=== PATIENT | male | born 1990 | race Caucasian/White ===

== ENCOUNTER 2020-12-04 18:38 | Inpatient (IN) | payer SELFPAY ==
[~2020-12-04] VITALS: Ht 167.6 cm; Wt 66.9 kg
[2020-12-04 18:42] VITALS: BP_SYST 132
--- NOTE | 2020-12-04 18:50 | NUR ---
Patient to ER bed 6 to gown for evaluation. Side rails up.
--- NOTE | 2020-12-04 18:54 | NUR ---
URINE COLLECTED AND SENT OVER TO LAB
--- NOTE | 2020-12-04 18:55 | NUR ---
pt arrives from home w/ a 2 week hx of mid abd pain, 9/10, constant. Pain became worse today. Pt also reports n/v and dark stools.
--- NOTE | 2020-12-04 18:56 | NUR ---
ER at bedside examining patient.
[2020-12-04] MEDS ORDERED: NACL 0.9% 1,000 ML IV ONE (19:00)
--- NOTE | 2020-12-04 19:10 | NUR ---
# 20 gauge angiocath placed to rac. Use of asceptic technique. Opsite placed over site. Blood return noted. Blood for lab drawn from site. Flushed with 10 cc of normal saline. No evidence of infiltration noted. Patient tolerated well.
--- NOTE | 2020-12-04 19:14 | NUR ---
UA COLLECTED AND SENT TO THE LAB
--- NOTE | 2020-12-04 19:14 | NUR ---
CARE ENDORSED TO AIMEE DEMPSEY.
--- NOTE | 2020-12-04 19:30 | NUR ---
aSSUMED CARE OF PATIENT AND RECEIVED REPORT FROM DAY SHIFT RN. 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 PT NPO EXCEPT ICE CHIPS.
[2020-12-04 19:33] LABS: BILIRUBIN,URINE NEGATIVE (NEGATIVE); BLOOD, URINE NEGATIVE (NEGATIVE); CLARITY/URINE CLEAR (CLEAR); COLOR,URINE YELLOW (YELLOW); GLUCOSE,URINE NEGATIVE (NEGATIVE); KETONES,URINE 1+ (NEGATIVE); LEUKOCYTE ESTERASE ,URINE NEGATIVE (NEGATIVE); NITRITE, URINE NEGATIVE (NEGATIVE); PROTEIN URINE NEGATIVE (NEGATIVE); UROBILINOGEN,URINE 0.2 (0.2-1.0)
[2020-12-04 19:41] LABS: WHITE BLOOD COUNT (AUTO) 11.6 K/uL (4.8-10.8)
[2020-12-04 19:45] LABS: BASOPHILS # (AUTO) 0.1 K/uL (0.0-0.2); BASOPHILS % (AUTO) 0.8 % (0.0-2.0); EOSINOPHILS % (AUTO) 0.3 % (0.0-4.0); HEMATOCRIT 23.5 % (36-54); HEMOGLOBIN 8.2 g/dL (14.0-18.0); LYMPHOCYTES # (AUTO) 2.8 K/uL (1.0-5.5); LYMPHOCYTES % (AUTO) 24.2 % (20.5-51.5); MEAN CORPUSCULAR HEMOGLOBIN 33 pg (27-31); MEAN CORPUSCULAR HGB CONC 35 % (32-36); MEAN CORPUSCULAR VOLUME 93 fL (79.0-98.0); MONOCYTES # (AUTO) 0.8 K/uL (0.0-1.0); MONOCYTES % (AUTO) 7.1 % (1.7-9.3); NEUTROPHILS # (AUTO) 7.9 K/uL (1.8-7.7); NEUTROPHILS % (AUTO) 67.6 % (40.0-70.0); PLATELET COUNT (AUTO) 266 K/uL (130-430); RED BLOOD CELL COUNT(AUTO) 2.53 MIL/uL (4.2-6.2); RED CELL DISTRIBUTION WIDTH 13.4 % (9.0-15.0)
[2020-12-04 19:46] LABS: CALCIUM 8.1 mg/dL (8.4-11.0); CREATININE 1.27 mg/dL (0.55-1.30); POTASSIUM 3.5 mmol/L (3.5-5.1)
[2020-12-04 19:52] LABS: ALBUMIN 3.5 g/dL (3.4-4.8); TOTAL BILIRUBIN 0.3 mg/dL (0.0-1.0)
[2020-12-04 19:57] LABS: BARBITURATE, URINE NEGATIVE (NEG <=200); BENZODIAZEPINE, URINE NEGATIVE (NEG <=150); COCAINE, URINE NEGATIVE (NEG <=150); METHAMPHETAMINES SCREEN,URINE NEGATIVE (NEG <=500); URINE AMPHETAMINE NEGATIVE (NEG <=500); URINE METHADONE NEGATIVE (NEG <=200)
[2020-12-04 19:58] LABS: CANNABINOID, URINE POSITIVE (NEG <=50); OPIATE, URINE NEGATIVE (NEG <=100); PHENCYCLIDINE SCREEN,URINE NEGATIVE (NEG <=25); UR TRICYCLIC ANTIDEPRESSANTS NEGATIVE (NEG <=300); URINE OXYCODONE SCREEN NEGATIVE (NEG <=100); URINE PROPOXYPHENE SCREEN NEGATIVE (NEG <=300)
[2020-12-04] MEDS ORDERED: MORPHINE 4 MG INJ. 4 MG/ML VIAL IVP ONE (20:45)
[2020-12-04] MEDS ORDERED: PANTOPRAZOLE SODIUM 80 MG in NS 100 ML IVP ONE (21:45)
[2020-12-04] MEDS ORDERED: PANTOPRAZOLE SODIUM 40 MG/VIAL (PROTONIX) ONE (21:58)
[2020-12-04] MEDS: PANTOPRAZOLE SODIUM 40 MG in NS 50 ML IV SCH (21:59)
--- NOTE | 2020-12-04 22:00 | NUR ---
PT C/O PAIN 11/09. MORPHINE GIVEN WITH GOOD RESULT. VITAL SIGNS REMAIN STABLE. LABS DRAWN. WILL CONTINUE TO MONITOR
[2020-12-04 22:25] LABS: EOSINOPHILS % (AUTO) 0.2 % (0.0-4.0); HEMOGLOBIN 7.1 g/dL (14.0-18.0); MONOCYTES # (AUTO) 0.8 K/uL (0.0-1.0)
[2020-12-04 22:31] LABS: BASOPHILS % (AUTO) 0.5 % (0.0-2.0); LYMPHOCYTES # (AUTO) 2.3 K/uL (1.0-5.5); MEAN CORPUSCULAR HEMOGLOBIN 33 pg (27-31); MEAN CORPUSCULAR HGB CONC 36 % (32-36); MEAN CORPUSCULAR VOLUME 93 fL (79.0-98.0); MONOCYTES % (AUTO) 7.9 % (1.7-9.3); NEUTROPHILS # (AUTO) 6.8 K/uL (1.8-7.7); NEUTROPHILS % (AUTO) 68.4 % (40.0-70.0); PLATELET COUNT (AUTO) 220 K/uL (130-430); RED BLOOD CELL COUNT(AUTO) 2.17 MIL/uL (4.2-6.2); RED CELL DISTRIBUTION WIDTH 13.2 % (9.0-15.0); WHITE BLOOD COUNT (AUTO) 9.9 K/uL (4.8-10.8)
[2020-12-04 22:32] LABS: HEMATOCRIT 20.1 % (36-54)
[2020-12-04] MEDS: NACL 0.9% 1,000 ML IV SCH (23:13)
--- NOTE | 2020-12-04 23:25 | NUR ---
PT HB 7.1 AND ONE UNIT PRBCS ORDERED PER ADITTING MD. CONSENT SIGNED. VITAL SIGNS REMAIN STABLE. PT CONTINUES TO BE ON THE PHARMACY COORDINATOR
[2020-12-04] MEDS ORDERED: ACETAMINOPHEN 325 MG TABLET PO PRN (23:45)
[2020-12-04] MEDS ORDERED: ONDANSETRON HCL 4 MG/2 ML VIAL IVP PRN (23:45)
[2020-12-04] MEDS ORDERED: TEMAZEPAM 15 MG CAPSULE PO PRN (23:45)
[2020-12-05] VITALS (7 sets, daily range): BP systolic 90–115
--- NOTE | 2020-12-05 00:54 | NUR ---
Patient will be admitted to care of [facility]. Admitted to TELE unit. Will go to room 130B. Belongings list completed. Complete and up to date summary report printed. SBAR report to be given at bedside with opportunity for questions.
--- NOTE | 2020-12-05 00:55 | NUR ---
Transfer to TELE via ACLS protocol. Licensed nurse present. IV present no signs or symptoms of infiltration.
--- NOTE | 2020-12-05 01:15 | NUR ---
ADMISSION NOTE Received patient from ER via gurney. Patient admitted with diagnosis of GI bleed. Patient is awake, alert, oriented X 4. Patient oriented to hospital room, call light, toileting, pain management and safety-teach back done. Patient informed that ROSELYN Khan will be primary nurse and that their room number is 130B. Personal belongings checked and Belongings List documented. Call light within reach.
--- NOTE | 2020-12-05 02:20 | NUR ---
NOTES: took over from charge nurse Reinaldo. pt. awake, alert . oriented to room , use of call light and bed control. placed on financial services internship. VS checked. denies any pain or discomfort at this time. IV NS infusing. call light within reach. will be transfuse ! unit PRBC.
--- NOTE | 2020-12-05 02:45 | NUR ---
NOTES: 1st unit PRBC started and regulated , checked Blood with nurse Tarsha. IV site on left forearm. VS checked.
[2020-12-05] MEDS ORDERED: PANTOPRAZOLE SODIUM 40 MG/VIAL (PROTONIX) ONE (04:30)
--- NOTE | 2020-12-05 05:10 | NUR ---
NOTES; blood transfusion completed withou any reactions. VS checked. follow up with Protonix drip @ 10 cc/hr and NS @ 80 cc/hr. complete linenchanged since it got wet. needs attended. no pain.
[2020-12-05] MEDS: PANTOPRAZOLE SODIUM 40 MG in NS 50 ML IV SCH ×4 (05:22→19:35)
--- NOTE | 2020-12-05 05:31 | NUR ---
CONSULT REASON FOR CONSULT: GI BLEED PERSON I SPOKE WITH: VALDO CONSULTING PHYSICIAN: DR. PENALOZA (DR. AUGUSTIN DRY BOX TENDER) DISC RECORDIST PHONE NUMBER: [phone] ORDERING PHYSICIAN: DR. MORRIS
--- NOTE | 2020-12-05 06:24 | NUR ---
CLOSING NOTES; pt. went back to sleep. IVF infusing with protonix drip. for further care and assistance. call light within reach.
--- NOTE | 2020-12-05 08:00 | NUR ---
Opening note patient is resting in bed, a/ox4, denies pain, IV line is patent and infusing well, educated on plan of care and call light system, he verbalized understanding, bed in lowest position, two side rails up, call light within reach, fall and aspiration precautions in place.
[2020-12-05 08:24] LABS: BASOPHILS % (AUTO) 0.4 % (0.0-2.0); EOSINOPHILS # (AUTO) 0.1 K/uL (0.0-0.4); EOSINOPHILS % (AUTO) 1.2 % (0.0-4.0); HEMATOCRIT 22.8 % (36-54); LYMPHOCYTES # (AUTO) 2.6 K/uL (1.0-5.5); LYMPHOCYTES % (AUTO) 33.3 % (20.5-51.5); MEAN CORPUSCULAR HEMOGLOBIN 32 pg (27-31); MEAN CORPUSCULAR HGB CONC 35 % (32-36); MEAN CORPUSCULAR VOLUME 93 fL (79.0-98.0); MONOCYTES # (AUTO) 0.7 K/uL (0.0-1.0); MONOCYTES % (AUTO) 8.4 % (1.7-9.3); NEUTROPHILS # (AUTO) 4.5 K/uL (1.8-7.7); NEUTROPHILS % (AUTO) 56.7 % (40.0-70.0); PLATELET COUNT (AUTO) 205 K/uL (130-430); RED BLOOD CELL COUNT(AUTO) 2.46 MIL/uL (4.2-6.2); RED CELL DISTRIBUTION WIDTH 14.3 % (9.0-15.0); WHITE BLOOD COUNT (AUTO) 7.9 K/uL (4.8-10.8)
[2020-12-05 09:07] LABS: ALBUMIN 2.9 g/dL (3.4-4.8); CALCIUM 7.5 mg/dL (8.4-11.0); CREATININE 1.05 mg/dL (0.55-1.30); TOTAL BILIRUBIN 0.4 mg/dL (0.0-1.0)
[2020-12-05 09:12] LABS: PROTHROMBIN TIME 10.9 SECS (9.5-12.5)
[2020-12-05] MEDS: NACL 0.9% 1,000 ML IV SCH ×2 (11:30→19:31)
[2020-12-05] MEDS ORDERED: MULTIVITAMINS TAB 1 TABLET PO ONE (12:00)
[2020-12-05] MEDS: SOD FERRIC GLUC COMPLEX/SUC 125 MG in NS 100 ML IV SCH (12:02)
[2020-12-05 17:18] LABS: BASOPHILS # (AUTO) 0.1 K/uL (0.0-0.2); BASOPHILS % (AUTO) 0.8 % (0.0-2.0); EOSINOPHILS # (AUTO) 0.1 K/uL (0.0-0.4); HEMATOCRIT 22.5 % (36-54); HEMOGLOBIN 7.7 g/dL (14.0-18.0); LYMPHOCYTES # (AUTO) 2.7 K/uL (1.0-5.5); LYMPHOCYTES % (AUTO) 32.6 % (20.5-51.5); MEAN CORPUSCULAR HEMOGLOBIN 32 pg (27-31); MEAN CORPUSCULAR HGB CONC 34 % (32-36); MEAN CORPUSCULAR VOLUME 94 fL (79.0-98.0); MONOCYTES # (AUTO) 0.6 K/uL (0.0-1.0); MONOCYTES % (AUTO) 7.7 % (1.7-9.3); NEUTROPHILS # (AUTO) 4.7 K/uL (1.8-7.7); NEUTROPHILS % (AUTO) 57.9 % (40.0-70.0); PLATELET COUNT (AUTO) 203 K/uL (130-430); RED CELL DISTRIBUTION WIDTH 14.7 % (9.0-15.0); WHITE BLOOD COUNT (AUTO) 8.1 K/uL (4.8-10.8)
--- NOTE | 2020-12-05 18:47 | NUR ---
Closing note patient is resting in bed, a/ox4, denies pain, IV line is patent and infusing well, all needs met, will endorse report to NOC shift nurse, patient is aware that he will be getting a blood transfusion tonight, bed in lowest position, two side rails up, call light within reach, fall and aspiration precautions in place.
--- NOTE | 2020-12-05 19:25 | NUR ---
CHANGE OF SHIFT; endorsed by day shift, will transfuse 1 unit PRBC as ordered. no distress. call light within reach.
--- NOTE | 2020-12-05 20:30 | NUR ---
NOTES" another unit of PRBC started as ordered nd regulated, another IV site started by nurse Alberto via left antecubital. pt. on Protonix drip @ 10 cc/hr and NS @ 80cc /hr. pt. denies any pain. will be NPO after midnite for EGD in am.
[2020-12-05] MEDS: MULTIVITAMINS TAB 1 TABLET PO SCH (20:44)
--- NOTE | 2020-12-05 22:23 | NUR ---
NOTES: pt. still awake, BT in progress no reaction noted. pt. ambulated to the restroom.
--- NOTE | 2020-12-05 23:00 | NUR ---
NOTES: Blood transfusion completed, no reaction. VS checked.
[2020-12-06 00:27] VITALS: BP_SYST 120
[2020-12-06] MEDS: PANTOPRAZOLE SODIUM 40 MG in NS 50 ML IV SCH ×2 (02:11→07:00)
--- NOTE | 2020-12-06 02:23 | NUR ---
NOTES; IV Protonix bag changed. pt. been sleeping.
--- NOTE | 2020-12-06 05:11 | NUR ---
NOTES: no complaint, no signs of blleding. IV site patent IVF continuous.
--- NOTE | 2020-12-06 06:45 | NUR ---
Nutrition Update Larry Scale 17 noted. Pt admitted for GI Bleed Diet: NPO BMI: 23.8 kg/m2 RD to follow per nutrition care standards.
--- NOTE | 2020-12-06 06:49 | NUR ---
CLOSING NOTES; IV Protonix continuous. no distress. kept NPO for EGD, consent signed already. will endorse to incoming shift. call light within reach.
[2020-12-06 06:59] LABS: BASOPHILS % (AUTO) 0.6 % (0.0-2.0); EOSINOPHILS # (AUTO) 0.1 K/uL (0.0-0.4); EOSINOPHILS % (AUTO) 1.3 % (0.0-4.0); HEMOGLOBIN 8.7 g/dL (14.0-18.0); LYMPHOCYTES # (AUTO) 2.9 K/uL (1.0-5.5); LYMPHOCYTES % (AUTO) 35.1 % (20.5-51.5); MEAN CORPUSCULAR HEMOGLOBIN 33 pg (27-31); MEAN CORPUSCULAR HGB CONC 35 % (32-36); MEAN CORPUSCULAR VOLUME 95 fL (79.0-98.0); MONOCYTES # (AUTO) 0.7 K/uL (0.0-1.0); MONOCYTES % (AUTO) 8.1 % (1.7-9.3); NEUTROPHILS # (AUTO) 4.5 K/uL (1.8-7.7); NEUTROPHILS % (AUTO) 54.9 % (40.0-70.0); PLATELET COUNT (AUTO) 205 K/uL (130-430); RED BLOOD CELL COUNT(AUTO) 2.64 MIL/uL (4.2-6.2); RED CELL DISTRIBUTION WIDTH 14.3 % (9.0-15.0); RETICULOCYTE COUNT 2.9 % (0.5-1.5); WHITE BLOOD COUNT (AUTO) 8.2 K/uL (4.8-10.8)
[2020-12-06] MEDS: NACL 0.9% 1,000 ML IV SCH (07:03)
[2020-12-06 08:00] VITALS: BP_SYST 116
[2020-12-06 08:31] LABS: PROTHROMBIN TIME 10.2 SECS (9.5-12.5)
[2020-12-06] MEDS ORDERED: MEPERIDINE 100 MG INJ. 100 MG/ML VIAL ONE (08:44)
[2020-12-06] MEDS ORDERED: DIPHENHYDRAMINE INJ 50 MG/ML VIAL ONE (08:44)
[2020-12-06] MEDS ORDERED: SIMETHICONE 40 MG/0.6 ML ML ONE (08:45)
[2020-12-06] MEDS ORDERED: MIDAZOLAM HCL 5 MG/5 ML VIAL ONE (08:45)
[2020-12-06 09:45] VITALS: BP_SYST 106
--- NOTE | 2020-12-06 09:45 | NUR ---
EGD with moderate sedation completed Patient awake/alert vitals sign stable , educate patient on soft bland diet , stress mangement , medication verbalized understanding.
[2020-12-06] MEDS: MULTIVITAMINS TAB 1 TABLET PO SCH ×2 (10:07→22:11)
[2020-12-06 10:34] LABS: ALBUMIN 2.9 g/dL (3.4-4.8); CALCIUM 7.9 mg/dL (8.4-11.0); CREATININE 1.07 mg/dL (0.55-1.30); POTASSIUM 3.7 mmol/L (3.5-5.1); TOTAL BILIRUBIN 0.2 mg/dL (0.0-1.0)
[2020-12-06] MEDS: SOD FERRIC GLUC COMPLEX/SUC 125 MG in NS 100 ML IV SCH (10:34)
[2020-12-06 13:29] VITALS: BP_SYST 108
[2020-12-06 16:07] VITALS: BP_SYST 98
[2020-12-06 20:30] VITALS: BP_SYST 119
--- NOTE | 2020-12-06 21:20 | NUR ---
Patient awake alert asking for SNACKS , crackers & juice po given tolerated .
[2020-12-06] MEDS: PANTOPRAZOLE SODIUM 40 MG/VIAL (PROTONIX) IVP SCH (22:11)
[2020-12-07 00:44] VITALS: BP_SYST 97
--- NOTE | 2020-12-07 03:35 | NUR ---
Hourly Rounding patient Resting HOB elevated Respirations Remain Regular also unlabored / .
--- NOTE | 2020-12-07 06:13 | NUR ---
Hourly Rounding patient Resting call webber given to patient encourage position change assist & no SOB noted skin dry warm / .
[2020-12-07 08:00] VITALS: BP_SYST 105
--- NOTE | 2020-12-07 08:00 | NUR ---
PATIENT IN BED, NO S/S OF DISTRESS, A/OX 4, IV INTACT AND PATENT, NO PAIN AT THIS TIME, BED IN LOWEST LOCKED POSITION, CALL LIGHT WITHIN REACH, SAFETY MEASURES IN PLACE, WILL CONTINUE TO MONITOR.
[2020-12-07 08:06] LABS: BASOPHILS # (AUTO) 0.1 K/uL (0.0-0.2); BASOPHILS % (AUTO) 0.6 % (0.0-2.0); EOSINOPHILS # (AUTO) 0.1 K/uL (0.0-0.4); HEMATOCRIT 29.2 % (36-54); HEMOGLOBIN 9.9 g/dL (14.0-18.0); LYMPHOCYTES # (AUTO) 2.1 K/uL (1.0-5.5); LYMPHOCYTES % (AUTO) 21.3 % (20.5-51.5); MEAN CORPUSCULAR HEMOGLOBIN 32 pg (27-31); MEAN CORPUSCULAR HGB CONC 34 % (32-36); MEAN CORPUSCULAR VOLUME 95 fL (79.0-98.0); MONOCYTES # (AUTO) 0.7 K/uL (0.0-1.0); MONOCYTES % (AUTO) 7.2 % (1.7-9.3); NEUTROPHILS % (AUTO) 69.9 % (40.0-70.0); PLATELET COUNT (AUTO) 264 K/uL (130-430); RED BLOOD CELL COUNT(AUTO) 3.07 MIL/uL (4.2-6.2); RED CELL DISTRIBUTION WIDTH 14.2 % (9.0-15.0)
[2020-12-07 08:22] LABS: CALCIUM 8.5 mg/dL (8.4-11.0); CREATININE 0.91 mg/dL (0.55-1.30); POTASSIUM 3.4 mmol/L (3.5-5.1)
[2020-12-07] MEDS: PANTOPRAZOLE SODIUM 40 MG/VIAL (PROTONIX) IVP SCH (09:05)
[2020-12-07] MEDS: MULTIVITAMINS TAB 1 TABLET PO SCH (09:05)
[2020-12-07] MEDS: SOD FERRIC GLUC COMPLEX/SUC 125 MG in NS 100 ML IV SCH (11:59)
--- NOTE | 2020-12-07 12:00 | NUR ---
PATIENT IN BED, NO S/S OF DISTRESS, A/OX 4, IV INTACT AND PATENT, NO PAIN AT THIS TIME, BED IN LOWEST LOCKED POSITION, CALL LIGHT WITHIN REACH, SAFETY MEASURES IN PLACE, WILL CONTINUE TO MONITOR, PATIENT STATES HE IS NOT BLEEDING ANYMORE AND HE FEELS BACK TO NORMAL .
[2020-12-07 12:59] VITALS: BP_SYST 100
[2020-12-07] MEDS ORDERED: POTASSIUM CHLORIDE 20 MEQ TAB.PRT.SR PO ONE (14:15)
[2020-12-07] MEDS ORDERED: PANT40SU2 PO (14:15)
[2020-12-07] MEDS ORDERED: SUCR1TAB78 PO (14:16)
[2020-12-07] MEDS ORDERED: MULT400T13 PO (14:17)
--- NOTE | 2020-12-07 16:00 | NUR ---
SPOKE TO DR MORRIS AT BESIDE, STATED PATIENT IS STABLE TO GO HOME ON ORAL MEDICATION.
[2020-12-07 16:21] VITALS: BP_SYST 127
[2020-12-07 17:01] VITALS: BP_SYST 127
--- NOTE | 2020-12-07 17:30 | NUR ---
PATIENT DISCHARGED, IV REMOVED, DISCHARGE PACKET SIGNED, PROVIDED PHONE NUMBER FOR DR AUGUSTIN THE GI SPECIALIST TO SCHEDULE A FOLLOW UP APPOINTMENT IN ONE WEEK, ALSO TOLD PATIENT TO FOLLOW UP WITH PCP IN 1 WEEK, TOLD TO EAT A BLAND DIET, NOT TO SMOKE, AND NOT TO DRINK. PATIENT STATED HE UNDERSTOOD. WRIST BAND REMOVED, NO PAIN AT TIME OF DISCHARGE, PATIENT WAS STABLE, ALL BELONGINGS WITH PATIENT, AMBULATED TO CAR AND CLEARED TO DRIVE SELF HOME. NOTIFIED GOD MOTHER/ AUNT TANIA OF PATIENTS DISCHARGE SHE STATED HE LIVES WITH HER AND WILL HELP ENSURE HE STICKS TO THE MD RECOMMENDATIONS. ANSWERED ALL QUESTIONS. MEDICATIONS SENT TO [facility] PER PATIENT REQUEST.
== END 2020-12-07 17:30 | disposition home or self-care (01) | DRG 378 ==
LOC: SED 18:38 → STU 20:44 → SMU 12-06 12:00
PROVIDERS: ADMIT Internal Medicine; ATTEND Internal Medicine
PROC: 30233N1 Transfusion of Nonautologous Red Blood Cells into Peripheral Vein, Percutaneous Approach (ICD-10-PCS; 2020-12-05)
PROC: 0DB78ZX Excision of Stomach, Pylorus, Via Natural or Artificial Opening Endoscopic, Diagnostic (ICD-10-PCS; principal; 2020-12-06 09:00)
DX: K26.4 Chronic or unspecified duodenal ulcer with hemorrhage (principal); D62 Acute posthemorrhagic anemia; E44.1 Mild protein-calorie malnutrition; K29.01 Acute gastritis with bleeding; E87.6 Hypokalemia; Z20.822 Contact with and (suspected) exposure to COVID-19; K29.80 Duodenitis without bleeding; Z90.49 Acquired absence of other specified parts of digestive tract; Z68.23 Body mass index [BMI] 23.0-23.9, adult
CPT/HCPCS: 36415; 43239; 76376; 80048; 80053; 80307; 81003; 85025; 85044; 85610-TC; 85730-TC; 86886; 86900; 86901; 86920; 87081; 88305; 88312; 88313; 96361; 96374; 96375; 99285; C9113; G0378; J1200; J2175; J2250; J2270; J2916; P9021

== ENCOUNTER 2021-01-19 01:32 | Emergency (ER) | payer SELFPAY ==
[~2021-01-19] VITALS: Ht 165.1 cm; Wt 66.2 kg
[~2021-01-19 01:32] MED LIST: MULT400T13 PO; PANT40SU2 PO; SUCR1TAB78 PO
[2021-01-19 02:20] VITALS: BP_SYST 141
--- NOTE | 2021-01-19 02:23 | NUR ---
Patient triaged and placed in waiting room. VSS and patient appears in no acute distress at this time. Accompanied by self, awaiting available bed, and MD notified of need for MSE.
--- NOTE | 2021-01-19 02:30 | NUR ---
Patient ambulatory to bed 4 for evaluation
--- NOTE | 2021-01-19 02:34 | NUR ---
PATIENT AAOX4 AND AMBULATORY FROM HOME C/O LEFT SIDED RASH. STATING 8/10 ON THE PAIN SCALE. HAS NOT BEEN TAKING ANYTHING FOR THE PAIN. VSS. DENIES ANY SOB OR CHEST PAIN.
--- NOTE | 2021-01-19 02:41 | NUR ---
DR. BAILEY AT BEDSIDE FOR EVALUATION.
[2021-01-19] MEDS ORDERED: VALA500T PO (02:54)
[2021-01-19] MEDS ORDERED: CAPS60CR4 TP (02:54)
--- NOTE | 2021-01-19 03:01 | NUR ---
Dr. Serrano at bedside discussing results with Patient.
[2021-01-19] MEDS ORDERED: HYDROcodone/ACETAMIN 7.5-325 MG TAB PO ONE (03:15)
[2021-01-19 03:35] VITALS: BP_SYST 141
--- NOTE | 2021-01-19 03:35 | NUR ---
Patient given written and verbal discharge instructions and verbalizes understanding. DR. LEO HARVEY MD discussed with patient the results and treatment provided. Patient in stable condition. ID arm band removed. Rx of ZOSTRIX, VALTREX given. Patient educated on pain management and to follow up with PMD. Pain Scale 0/10. Opportunity for questions provided and answered. Medication side effect fact sheet provided.
== END 2021-01-19 03:35 | disposition home or self-care (01) ==
LOC: SED 01:32
DX: B02.9 Zoster without complications (principal); I10 Essential (primary) hypertension; Z79.899 Other long term (current) drug therapy
CPT/HCPCS: 99283

== ENCOUNTER 2022-07-13 00:06 | Emergency (ER) | payer OTHER ==
[~2022-07-13] VITALS: Ht 165.1 cm; Wt 63.5 kg
[~2022-07-13 00:06] MED LIST changes: +CAPS60CR4 TP; +SUCR1TAB2 PO; -SUCR1TAB78 PO; +VALA500T PO
--- NOTE | 2022-07-13 00:20 | NUR ---
Patient to ER bed 06 to gown for evaluation. Side rails up. Report given to ROSELYN ALBA.
[2022-07-13 00:21] VITALS: BP_SYST 145
[2022-07-13] MEDS ORDERED: MORPHINE 4 MG INJ. 4 MG/ML VIAL IVP ONE (00:30)
[2022-07-13] MEDS ORDERED: NACL 0.9% 1,000 ML IV ONE (00:30)
[2022-07-13] MEDS ORDERED: ONDANSETRON HCL 4 MG/2 ML VIAL IVP ONE (00:30)
[2022-07-13] MEDS ORDERED: DIPHENHYDRAMINE INJ 50 MG/ML VIAL ONE (01:14)
[2022-07-13] MEDS ORDERED: DIPHENHYDRAMINE INJ 50 MG/ML VIAL IVP ONE ×2 (01:15→01:30)
--- NOTE | 2022-07-13 01:30 | NUR ---
md at bedside examining patient
--- NOTE | 2022-07-13 01:31 | NUR ---
pt a/o x 4. c/o abd pain 01/09. c/o hand cramping aware. 20g iv placed
[2022-07-13 01:35] LABS: CALCIUM 9.1 mg/dL (8.4-11.0); CREATININE 1.21 mg/dL (0.55-1.30)
[2022-07-13 01:40] LABS: TOTAL BILIRUBIN 0.8 mg/dL (0.0-1.0)
[2022-07-13 01:41] LABS: BASOPHILS # (AUTO) 0.1 K/uL (0.0-0.2); BASOPHILS % (AUTO) 0.7 % (0.0-2.0); EOSINOPHILS % (AUTO) 0.1 % (0.0-4.0); HEMATOCRIT 47.5 % (36-54); HEMOGLOBIN 16.3 g/dL (14.0-18.0); LYMPHOCYTES % (AUTO) 19.1 % (20.5-51.5); MEAN CORPUSCULAR HEMOGLOBIN 31 pg (27-31); MEAN CORPUSCULAR HGB CONC 34 % (32-36); MEAN CORPUSCULAR VOLUME 91 fL (79.0-98.0); MONOCYTES # (AUTO) 0.8 K/uL (0.0-1.0); MONOCYTES % (AUTO) 7.7 % (1.7-9.3); NEUTROPHILS # (AUTO) 7.6 K/uL (1.8-7.7); NEUTROPHILS % (AUTO) 72.4 % (40.0-70.0); PLATELET COUNT (AUTO) 331 K/uL (130-430); RED CELL DISTRIBUTION WIDTH 13.2 % (9.0-15.0); WHITE BLOOD COUNT (AUTO) 10.5 K/uL (4.8-10.8)
[2022-07-13] MEDS ORDERED: ONDA-8 TL (03:03)
[2022-07-13] MEDS ORDERED: DICY10CA13 PO (03:03)
[2022-07-13] MEDS ORDERED: FAMO-132 PO (03:03)
[2022-07-13 03:21] VITALS: BP_SYST 135
== END 2022-07-13 04:18 | disposition home or self-care (01) ==
LOC: SED 00:06
DX: R10.33 Periumbilical pain (principal); R11.10 Vomiting, unspecified; Z79.899 Other long term (current) drug therapy
CPT/HCPCS: 99285; 74176; 96374; 96375; 96361; 80053; 83690; 85025; 36415; 76376; J1200; J2405; J2270; J7030